=== PATIENT | female | born 1960 | race Caucasian/White ===

== ENCOUNTER 2019-04-21 18:00 | Emergency (ER) | payer OTHER ==
[~2019-04-21] VITALS: Ht 165.1 cm; Wt 92.5 kg
[~2019-04-21 18:00] MED LIST: FENO134C2 PO; GLIM2TAB2 PO; HYDR1TAB10 PO; METF1000 PO
[2019-04-21 18:16] VITALS: BP 164/66
--- NOTE | 2019-04-21 18:35 | NUR ---
PT AMBULATES TO BED 4
--- NOTE | 2019-04-21 19:02 | NUR ---
58F C/O GENERALIZED ABD PAIN X 3 DAYS. +NAUSEA, +NON BLOODY DIARRHEA YESTERDAY. NO VOMITING. +DECREASED APPETITE. STATES CHILLS YESTERDAY AND FELT WARM YESTERDAY, DID NOT CHECK TEMP. PAIN WORSE WITH MOVEMENT AND CONSTANT. PAIN IS GENERALIZED THROUGHOUT ABD BUT WORST AT LUQ TO LEFT BACK. LUQ TENDER TO PALPATION. NORMOACTIVE BS. SEEN AT [facility] [place] 04/19/19 - DX WITH GALLSTONES. RX OF IBUPROFEN WHICH PROVIDES SOME RELIEF. HX- DM, HTN
--- NOTE | 2019-04-21 19:15 | NUR ---
Pt report given to SE BAKER. Transfer of care at this time.
--- NOTE | 2019-04-21 19:17 | NUR ---
RECEIVED REPORT FROM SE FRANKLIN. PT IN BED WITH DAUGHTER AT BED SIDE. PT STILL C/O L UPPER QUADRANT ABD PAIN THAT RADIATES TO L LOWER BACK 06/03. RR EVEN UNLABORED. AAOX4 GCS 15, EDMD DR. WAITE MADE AWARE, WILL CONTINUE TO MONITOR CLOSELY, BED LOCKED IN LOWEST POSITION, SIDERAIL UPX1.
[2019-04-21] MEDS ORDERED: KETOROLAC 30 MG/ML VIAL IVP ONE (19:30)
[2019-04-21] MEDS ORDERED: ONDANSETRON 4 MG/2 ML VIAL IVP ONE (19:30)
[2019-04-21] MEDS ORDERED: NACL 0.9% 1,000 ML IV ONE (19:30)
[2019-04-21 19:58] LABS: BASOPHILS % (AUTO) 0.3 % (0.0-2.0); EOSINOPHILS # (AUTO) 0.2 K/uL (0-0.4); EOSINOPHILS % (AUTO) 1.2 % (0.0-4.0); HEMATOCRIT 40.1 % (36-48); HEMOGLOBIN 13.1 g/dL (12.0-16.0); LYMPHOCYTES # (AUTO) 0.9 K/uL (2.5-16.5); MEAN CORPUSCULAR HEMOGLOBIN 27 pg (27-31); MEAN CORPUSCULAR HGB CONC 33 g/dL (33-37); MEAN CORPUSCULAR VOLUME 82.3 fL (80-94); MONOCYTES # (AUTO) 1.1 K/uL (0.8-1.0); MONOCYTES % (AUTO) 8.5 % (1.7-9.3); NEUTROPHILS # (AUTO) 11.2 K/uL (1.8-7.7); PLATELET COUNT (AUTO) 261 K/uL (140-450); RED BLOOD CELL COUNT(AUTO) 4.87 MIL/uL (4.20-5.40); RED CELL DISTRIBUTION WIDTH 14.9 % (11.6-13.7); WHITE BLOOD COUNT (AUTO) 13.5 K/uL (4.8-10.8)
[2019-04-21 20:15] LABS: ANION GAP 20.3 (8-16); CARBON DIOXIDE 18.3 mmol/L (21-32); CREATININE 0.8 mg/dL (0.6-1.3); POTASSIUM 3.6 mmol/L (3.5-5.1)
[2019-04-21 20:21] LABS: ALBUMIN 2.8 g/dL (3.4-5.0); TOTAL BILIRUBIN 0.6 mg/dL (0.0-1.0)
[2019-04-21 20:47] VITALS: BP 156/68
--- NOTE | 2019-04-21 20:47 | NUR ---
Patient discharged with v/s stable. Written and verbal after care instructions given and explained. Patient alert, oriented and verbalized understanding of instructions. Ambulatory with steady gait. All questions addressed prior to discharge. ID band removed. Patient advised to follow up with PMD. Rx of MOTRIN 800MG, ZOFRAN 8MG AND NORCO 5MG-325MG given. Patient educated on indication of medication including possible reaction and side effects. Opportunity to ask questions provided and answered.
== END 2019-04-21 20:47 | disposition home or self-care (01) ==
LOC: MED 18:00
DX: R10.13 Epigastric pain (principal); R11.2 Nausea with vomiting, unspecified; R42 Dizziness and giddiness; E11.9 Type 2 diabetes mellitus without complications; I10 Essential (primary) hypertension; Z79.84 Long term (current) use of oral hypoglycemic drugs; Z79.899 Other long term (current) drug therapy
CPT/HCPCS: 36415; 80053; 81002; 81025; 83690; 85025; 96361; 96374; 96375; 99283; J1885; J2405; J7030